=== PATIENT | female | born 1985 | race Caucasian/White ===

== ENCOUNTER 2018-05-08 19:50 | Emergency (ER) | payer OTHER, SELFPAY ==
[2018-05-08 21:07] LABS: Absolute Lymphocytes (CBC) 2.1 K/uL (0.7-4.9); Absolute Monocytes 0.5 K/uL (0.1-1.3); Absolute Neutrophil 4.3 K/uL (1.8-8.0); Basophils % 0.5 % (0-1.3); Eosinophils % 1.6 % (0-4.4); Hematocrit 41.8 % (36.0-45.0); Lymphocytes % 30.2 % (15.3-44.8); MCH 32.3 pg (27.0-35.0); MCV 93.2 fL (80-100); MPV 9.1 fL (7.6-11.3); Monocytes % 7.7 % (3.3-12.3); RBC Red Blood Cell Count 4.49 M/uL (3.86-4.86)
[2018-05-08 21:22] LABS: Urine Blood 2+ (NEG); Urine Glucose NEGATIVE (NEG); Urine Protein NEGATIVE (NEG); Urine Specific Gravity >1.030 (1.005-1.030)
[2018-05-08 21:24] LABS: BUN Blood Urea Nitrogen 17 mg/dL (7-18); Bicarbonate 25 mmol/L (21-32); Glucose Level 81 mg/dL (74-106); HCG, Quantitative 50 mIU/mL (1-3); Potassium 3.8 mmol/L (3.5-5.1); Sodium Level 141 mmol/L (136-145)
--- NOTE | 2018-05-08 23:03 | ER ---
Nurse's Notes [facility] Name: Debra Jade Age: 32 yrs Sex: Female : 1985 Arrival Date: 05/08/2018 Time: 19:55 Bed 24 Private MD: Alva Monaco Diagnosis: Threatened Presentation: 05/08 20:00 Presenting complaint: Patient states: vaginal bleeding, started yesterday- 5 weeks tl3 . Transition of care: patient was not received from another setting of care. Onset of symptoms was May 07, 2018. Risk Assessment: Do you want to hurt yourself or someone else? Patient reports no desire to harm self or others. Initial Sepsis Screen: Does the patient meet any 2 criteria? No. Patient's initial sepsis screen is negative. Does the patient have a suspected source of infection? No. Patient's initial sepsis screen is negative. Care prior to arrival: None. 20:00 Method Of Arrival: Ambulatory tl3 20:00 Acuity: EMILY 3 tl3 Triage Assessment: 20:17 General: Appears distressed, well groomed, well developed, well nourished, Behavior is tl3 calm, cooperative, appropriate for age, anxious. Pain: Denies pain. EENT: No signs and/or symptoms were reported regarding the EENT system. Neuro: Level of Consciousness is awake, alert, obeys commands, Oriented to person, place, time, situation, Appropriate for age. 20:20 Cardiovascular: Patient's skin is warm and dry. Respiratory: Airway is patent tl3 Respiratory effort is even, unlabored, Respiratory pattern is regular, symmetrical. GI: No signs and/or symptoms were reported involving the gastrointestinal system. : Reports vaginal bleeding that is bright red, since yesterday, has only used one pad each day, blood is mixed with mucus. Derm: No signs and/or symptoms reported regarding the dermatologic system. Musculoskeletal: No signs and/or symptoms reported regarding the musculoskeletal system. 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 - Social history:: Smoking status: unknown. - Ebola Screening: : No symptoms or risks identified at this time. Screenin:23 Abuse screen: Denies threats or abuse. Nutritional screening: No deficits noted. tl3 Tuberculosis screening: No symptoms or risk factors identified. Fall Risk None identified. Assessment: 20:23 Reassessment: No changes from previously documented assessment. tl3 20:47 Reassessment: Patient appears in no apparent distress at this time. No changes from tl3 previously documented assessment. Patient and/or family updated on plan of care and expected duration. Pain level reassessed. Patient is alert, oriented x 3, equal unlabored respirations, skin warm/dry/pink. pt being transported to US. 21:13 Reassessment: Patient appears in no apparent distress at this time. No changes from tl3 previously documented assessment. Patient and/or family updated on plan of care and expected duration. Pain level reassessed. Patient is alert, oriented x 3, equal unlabored respirations, skin warm/dry/pink. pt returned from US, no needs at this time. 22:49 Reassessment: Patient appears in no apparent distress at this time. No changes from tl3 previously documented assessment. Patient and/or family updated on plan of care and expected duration. Pain level reassessed. Patient is alert, oriented x 3, equal unlabored respirations, skin warm/dry/pink. awaiting Rhogam. 23:29 Reassessment: Patient appears in no apparent distress at this time. No changes from tl3 previously documented assessment. Patient and/or family updated on plan of care and expected duration. Pain level reassessed. Patient is alert, oriented x 3, equal unlabored respirations, skin warm/dry/pink. Vital Signs: 20:20 BP 145 / 89; Pulse 82; Resp 18; Temp 98.6(O); Pulse Ox 100% on R/A; tl3 21:13 BP 133 / 96; Pulse 52; Resp 18; Pulse Ox 100% on R/A; tl3 22:49 BP 122 / 83; Pulse 54; Resp 18; Pulse Ox 98% on R/A; tl3 23:29 BP 124 / 93; Pulse 56; Resp 16; Pulse Ox 99% on R/A; tl3 ED Course: 19:55 Patient arrived in ED. al2 19:55 Alva Monaco MD is Private Physician. al2 19:58 [facility] Gra[facility]. pm1 19:59 Tobias Bauer MD is Attending Physician. pm1 19:59 Bessie Dominguez, RN is Primary Nurse. tl3 20:14 Triage completed. tl3 20:15 Urine collected: clean catch specimen, clear, tam colored, Amount Voided: 60mL. jp3 20:20 Arm band placed on right wrist. tl3 20:23 Patient has correct armband on for positive identification. Placed in gown. Bed in low tl3 position. Call light in reach. Side rails up X 1. Pulse ox on. NIBP on. Warm blanket given. 20:23 No provider procedures requiring assistance completed. Inserted saline lock: 20 gauge tl3 in right antecubital area, using aseptic technique. 21:05 US Transvaginal Ob In Process Unspecified. EDMS 23:02 Alva Monaco MD is Referral Physician. pm1 23:29 IV discontinued, intact, bleeding controlled, No redness/swelling at site. Pressure tl3 dressing applied. Administered Medications: 23:30 Drug: RhoGAM (Human) 300 mcg Route: IM; Site: right gluteus; tl3 23:30 Follow up: Response: Medication administered at discharge. tl3 Outcome: 23:02 Discharge ordered by . pm1 23:29 Discharged to home ambulatory. tl3 23:29 Condition: good 23:29 Discharge instructions given to patient, Instructed on discharge instructions, follow up and referral plans. Demonstrated understanding of instructions, follow-up care. 23:31 Patient left the ED. tl3 Signatures: Dispatcher [employer] EDMS Kike Graff NP SHRUB GROWER pm1 Maria De Jesus Walker al2 Bessie Dominguez, RN RN tl3 Jabier Dover jp3
--- NOTE | 2018-05-08 23:03 | EDPHYS ---
Physician Documentation [facility] Name: Debra Jade Age: 32 yrs Sex: Female : 1985 Arrival Date: 05/08/2018 Time: 19:55 Bed 24 Private MD: Alva Monaco ED Physician Tobias Bauer HPI: 05/08 21:14 This 32 yrs old Female presents to ER via Ambulatory with complaints of pm1 Vaginal Bleeding, 5 WEEKS PREG. 21:14 The patient presents with vaginal bleeding that is light, with no clots, reports using pm1 1 pads or tampons per day. Onset: The symptoms/episode began/occurred yesterday. Modifying factors: The symptoms are alleviated by nothing, the symptoms are aggravated by nothing. Associated signs and symptoms: Pertinent negatives: cramping, dysuria, fever, nausea, vomiting. The patient is sexually active. The patient has not experienced similar symptoms in the past. The patient has been recently seen by a physician: Dr. Monaco. Patient reports bleeding similar in quantity to initial onset of menses. Patient denies any pain. 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 - Social history:: Smoking status: unknown. - Ebola Screening: : No symptoms or risks identified at this time. ROS: 21:14 Positive for vaginal bleeding, Negative for urinary symptoms. pm1 21:14 Constitutional: Negative for fever, chills, and weight loss, Eyes: Negative for injury, pain, redness, and discharge, ENT: Negative for injury, pain, and discharge, Neck: Negative for injury, pain, and swelling, Cardiovascular: Negative for chest pain, palpitations, and edema, Respiratory: Negative for shortness of breath, cough, wheezing, and pleuritic chest pain, Abdomen/GI: Negative for abdominal pain, nausea, vomiting, diarrhea, and constipation, Back: Negative for injury and pain, MS/Extremity: Negative for injury and deformity, Skin: Negative for injury, rash, and discoloration, Neuro: Negative for headache, weakness, numbness, tingling, and seizure. Exam: 21:14 Constitutional: This is a well developed, well nourished patient who is awake, alert, pm1 and in no acute distress. Head/Face: Normocephalic, atraumatic. Eyes: Pupils equal round and reactive to light, extra-ocular motions intact. Lids and lashes normal. Conjunctiva and sclera are non-icteric and not injected. Cornea within normal limits. Periorbital areas with no swelling, redness, or edema. ENT: Nares patent. No nasal discharge, no septal abnormalities noted. Tympanic membranes are normal and external auditory canals are clear. Oropharynx with no redness, swelling, or masses, exudates, or evidence of obstruction, uvula midline. Mucous membranes moist. Neck: Trachea midline, no thyromegaly or masses palpated, and no cervical lymphadenopathy. Supple, full range of motion without nuchal rigidity, or vertebral point tenderness. No Meningismus. Chest/axilla: Normal chest wall appearance and motion. Nontender with no deformity. No lesions are appreciated. Cardiovascular: Regular rate and rhythm with a normal S1 and S2. No gallops, murmurs, or rubs. Normal PMI, no JVD. No pulse deficits. Respiratory: Lungs have equal breath sounds bilaterally, clear to auscultation and percussion. No rales, rhonchi or wheezes noted. No increased work of breathing, no retractions or nasal flaring. Abdomen/GI: Soft, non-tender, with normal bowel sounds. No distension or tympany. No guarding or rebound. No evidence of tenderness throughout. Back: No spinal tenderness. No costovertebral tenderness. Full range of motion. 21:14 Skin: Warm, dry with normal turgor. Normal color with no rashes, no lesions, and no evidence of cellulitis. MS/ Extremity: Pulses equal, no cyanosis. Neurovascular intact. Full, normal range of motion. 21:14 Neuro: Orientation: is normal, Motor: is normal, moves all fours. Vital Signs: 20:20 BP 145 / 89; Pulse 82; Resp 18; Temp 98.6(O); Pulse Ox 100% on R/A; tl3 21:13 BP 133 / 96; Pulse 52; Resp 18; Pulse Ox 100% on R/A; tl3 22:49 BP 122 / 83; Pulse 54; Resp 18; Pulse Ox 98% on R/A; tl3 23:29 BP 124 / 93; Pulse 56; Resp 16; Pulse Ox 99% on R/A; tl3 MDM: 19:59 Patient medically screened. pm1 21:19 Data reviewed: vital signs. Data interpreted: Pulse oximetry: on room air is 100 %. pm1 Interpretation: normal. 23:02 Counseling: I had a detailed discussion with the patient and/or guardian regarding: the pm1 historical points, exam findings, and any diagnostic results supporting the discharge/admit diagnosis, lab results, radiology results, the need for outpatient follow up, to return to the emergency department if symptoms worsen or persist or if there are any questions or concerns that arise at home, Repeat beta HCG in 48 hours and ultrasound. 05/08 19:59 Order name: Quantitative Hcg; Complete Time: 21:41 pm1 05/08 19:59 Order name: Abo/rh Typing [facility] 05/08 19:59 Order name: Basic Metabolic Panel; Complete Time: 21:41 pm1 05/08 19:59 Order name: CBC with Diff; Complete Time: 21:14 pm05/08 20:27 Order name: Urine Dipstick--Ancillary (enter results); Complete Time: 21:41 mi 05/08 20:27 Order name: Urine --Ancillary (enter results); Complete Time: 21:41 mi 05/08 19:59 Order name: Urine Test (obtain specimen); Complete Time: 20:27 pm 05/08 20:07 Order name: US Transvaginal Ob [facility] 05/08 22:00 Order name: Rh Typing [facility] 05/08 22:00 Order name: Antibody Screen [facility] 05/08 22:00 Order name: Fetalscreen [facility] 05/08 22:00 Order name: Cord Rh type [facility] 05/08 22:00 Order name: Rhogam [facility] 05/08 19:59 Order name: IV Saline Lock; Complete Time: 20:28 pm05/08 19:59 Order name: Labs collected and sent; Complete Time: 20:28 pm1 05/08 19:59 Order name: NPO; Complete Time: 20:28 pm1 05/08 19:59 Order name: Urine Dipstick-Ancillary (obtain specimen); Complete Time: 20:28 pm1 Administered Medications: 23:30 Drug: RhoGAM (Human) 300 mcg Route: IM; Site: right gluteus; tl3 23:30 Follow up: Response: Medication administered at discharge. tl3 Disposition: 05/09 03:00 Co-signature as Attending Physician, Tobias Bauer MD I agree with the assessment and tw4 plan of care. Attestation: The patient's history, exam findings, diagnostics, and a summary of any interventions or procedures was reviewed in detail with Kike Graff NP. Disposition: 05/08/18 23:02 Discharged to Home. Impression: Threatened . - Condition is Stable. - Discharge Instructions: Threatened Miscarriage, Pelvic Rest. - Medication Reconciliation Form, Thank You Letter form. - Follow up: Alva Monaco MD; When: 2 - 3 days; Reason: Recheck today's complaints, Continuance of care, Repeat Beta-HCG (48 Hours), Re-evaluation by your physician. Follow up: Emergency Department; When: As needed; Reason: Worsening of condition, Repeat Beta-HCG (48 Hours). - Problem is new. - Symptoms have improved. Signatures: Dispatcher [employer] EDMS Kike Graff, REMOTE PILOT OPERATOR REMOTE PILOT OPERATOR pm1 Tobias Bauer MD MD tw4 Bessie Dominguez RN RN tl3 Corrections: (The following items were deleted from the chart) 05/08 23:03 23:02 05/08/2018 23:02 Discharged to Home. Impression: Threatened . Condition pm1 is Stable. Discharge Instructions: Threatened Miscarriage, Pelvic Rest. Forms are Medication Reconciliation Form, Thank You Letter, Antibiotic Education, Prescription Opioid Use. Follow up: Emergency Department; When: As needed; Reason: Worsening of condition. Follow up: Alva Monaco; When: 2 - 3 days; Reason: Recheck today's complaints, Continuance of care, Re-evaluation by your physician. Problem is new. Symptoms have improved. pm1 23:09 23:02 Counseling: I had a detailed discussion with the patient and/or guardian pm1 regarding: the historical points, exam findings, and any diagnostic results supporting the discharge/admit diagnosis, lab results, radiology results, the need for outpatient follow up, to return to the emergency department if symptoms worsen or persist or if there are any questions or concerns that arise at home, Repeat beta HCG in 48 hours, pm1 23:31 23:03 05/08/2018 23:02 Discharged to Home. Impression: Threatened . Condition tl3 is Stable. Discharge Instructions: Threatened Miscarriage, Pelvic Rest. Forms are Medication Reconciliation Form, Thank You Letter, Antibiotic Education, Prescription Opioid Use. Follow up: Alva Monaco; When: 2 - 3 days; Reason: Recheck today's complaints, Continuance of care, Repeat Beta-HCG (48 Hours), Re-evaluation by your physician. Follow up: Emergency Department; When: As needed; Reason: Worsening of condition, Repeat Beta-HCG (48 Hours). Problem is new. Symptoms have improved. pm1
--- NOTE | 2018-05-09 06:43 | RAD REPORT ---
EXAM DESCRIPTION: US - Transvaginal OB - 05/08/2018 9:05 pm CLINICAL HISTORY: VAGINAL BLEEDING<Reason For Exam>VAGINAL BLEEDING A preliminary report was provided at the time of the study and reviewed prior to final report. COMPARISON: No comparisons<Comparisons>No comparisons TECHNIQUE: Endovaginal sonography performed. FINDINGS: Uterus is 7.7 x 4.3 x 5.4 cm. No myometrial mass. A very small 3 x 2 mm oval fluid collect ion is present in the lower uterine segment junction with the cervical canal. This is too small to fu rther characterize. No IUP is confirmed. No hematoma or mass within the endometrial cavity. Both ovaries are identified. Normal blood flow pattern seen within the ovarian stroma. No dominant so lid or cystic ovarian or adnexal finding. No sonographic finding for ectopic . No blood or f luid in the cul-de-sac. IMPRESSION: No IUP confirmed. No abnormality to suspect ectopic . A very small 3 x 2 mm fluid collection low in the cervical canal is potentially a very early gestatio nal sac. This small cystic mass is too small to fully characterize. Followup sonography can be performed if serial HCG values indicate ongoing .
== END 2018-05-08 23:31 | disposition home or self-care (01) ==
LOC: ER 19:50
DX: O20.0 Threatened abortion (principal); Z3A.01 Less than 8 weeks gestation of pregnancy
CPT/HCPCS: 36415; 76817; 80048; 81003; 81025; 84702; 85025; 86850; 86900; 86901; 96372; 99284; J2790

== ENCOUNTER 2019-05-27 10:06 | Inpatient (IN) | payer BC ==
[2019-05-26 09:47] LABS: Urine Appearance CLEAR; Urine Bilirubin NEGATIVE (NEG); Urine Blood NEGATIVE (NEG); Urine Color YELLOW; Urine Glucose NEGATIVE (NEG); Urine Protein NEGATIVE (NEG); Urine Urobilinogen 0.2 mg/dL (0.2-1.0)
[2019-05-26 09:49] LABS: Urine Microscopic Reflex ORDER UMIC
[2019-05-26 09:50] LABS: Absolute Lymphocytes (CBC) 1.4 K/uL (0.7-4.9); Basophils % 0.2 % (0-1.3); Hematocrit 34.4 % (36.0-45.0); Lymphocytes % 18.5 % (15.3-44.8); MPV 8.5 fL (7.6-11.3); RBC Red Blood Cell Count 3.92 M/uL (3.86-4.86)
[2019-05-26 10:20] LABS: Urine Bacteria <20 /HPF (<20); Urine Culture Reflex Order REFLEXED; Urine RBC <5 /HPF (NONE SEEN)
[2019-05-26 20:54] LABS: RPR (Rapid Plasma Reagin) NON-REACT (NON-REACT)
[~2019-05-27 10:06] MED LIST: CEFAZOLIN/SWI 2gm 2 GM/20 ML SYR IV SCH; Ringers Lactate 1,000 ML IV PRN
--- OUTSIDE RECORDS SUMMARY | 2019-05-27 10:09 | XMS REPORT ---
:1985 Author Organization [employer] Care Team Providers Name Role Phone Francisco J Loyola Provider Role Unavailable Allergies, Adverse Reactions, Alerts Substance Reaction Event Type N.K.D.A. Info Not Available Non Drug Allergy Problems Problem Type Condition Code Onset Dates Condition Status Assessment Encounter for supervision of other Z34.83 Active normal in third trimester Problem Positive urine test Z32.01 Active Assessment Unspecified blood type, Rh negative Z67.91 Active Problem Encounter for supervision of other Z34.83 Active normal in third trimester Problem Unspecified blood type, Rh negative Z67.91 Active Problem Uterine size-date discrepancy in O26.843 Active third trimester Problem Parvovirus infection, unspecified B34.3 Active Problem Encounter for supervision of other Z34.82 Active normal in second trimester Problem Other specified related O26.899 Active conditions, unspecified trimester Problem Other viral diseases complicating O98.519 Active , unspecified trimester Medications Medication Code System Code Instructions Start Date End Date Status Dosage PNV NDC 0 Active not defined Results No Known Results Summary Purpose [employer] Submission
[2019-05-27 11:21] VITALS: BMI 26.4
[2019-05-27] MEDS ORDERED: NA CIT/CITRIC AC 30 ML ORAL UDC PO ONE (11:48)
[2019-05-27] MEDS ORDERED: FAMOTIDINE 20 MG/2 ML VIAL IV ONE (11:53)
[2019-05-27] MEDS ORDERED: Ringers Lactate 1,000 ML IV PRN (11:54)
[2019-05-27] MEDS ORDERED: CEFAZOLIN/NS 1gm 1 GM/50 ML BAG IVPB SCH (12:00)
[2019-05-27] MEDS ORDERED: OXYTOCIN/LR 20 UNIT/1,000 ML BAG IV SCH (12:00)
[2019-05-27] MEDS ORDERED: Ringers Lactate 1,000 ML IV SCH (12:00)
[2019-05-27] MEDS ORDERED: METOCLOPRAMIDE 10 MG/2mL INJ IV SCH (12:00)
[2019-05-27] MEDS ORDERED: EPHEDRINE SULF 50 MG/ML VIAL ONE (12:07)
[2019-05-27] MEDS ORDERED: FENTANYL CITR 250 MCG/5 ML ONE (12:07)
[2019-05-27] MEDS ORDERED: Phenylephrine HCl 10 MG/ML 1 ML VIAL ONE (12:07)
[2019-05-27] MEDS ORDERED: NS 0.9% VIAL 20 ML ONE (12:07)
[2019-05-27] MEDS ORDERED: OXYTOCIN 10 UNIT/ML ML IV ONE (12:07)
[2019-05-27] MEDS ORDERED: MORPHINE SULFATE/PF 1 MG/ML (10 ML AMP) ONE (12:07)
[2019-05-27] MEDS ORDERED: METHYLERGONOVINE 0.2MG/ML AMP IM ONE (12:58)
[2019-05-27] MEDS ORDERED: ONDANSETRON 4 MG (ODT) TAB PO PRN (13:46)
[2019-05-27] MEDS ORDERED: Oxycodone HCl/Acetaminophen 1 TAB TAB PO PRN (13:46)
[2019-05-27] MEDS ORDERED: METHYLERGONOVINE 0.2 MG TAB PO PRN (13:46)
[2019-05-27] MEDS ORDERED: ACETAMINOPHEN 500 MG TAB PO PRN (13:46)
[2019-05-27] MEDS ORDERED: BISACODYL 10 MG RECTAL SUPP RECT PRN (13:46)
[2019-05-27] MEDS ORDERED: KETOROLAC 30 MG/ML INJ IV PRN (13:48)
--- NOTE | 2019-05-27 13:50 | P.OP ---
Mortgage Processing Clerk: Umberto Holt Preoperative diagnosis: Prior section, declines Postoperative diagnosis: same Primary procedure: Repeat low transverse section Secondary procedure: none Anesthesia: spinal Estimated blood loss: 800cc Specimen: cord blood, placenta Findings: Female , APGARS 9/9, weight 7lb 13 oz Operative Technique: The patient was taken to the operating room where spinal anesthesia was administered without difficulty. The patient was prepped and draped in the usual sterile fashion in the dorsal supine position with a leftward tilt. A Pfannenstiel skin incision was made with the scalpel and carried through to the underlying layer of fascia using the scalpel. The fascia was incised in the midline and extended laterally using Raya scissors. Uzma clamps were used to elevate the superior aspect of the fascial incision, which was elevated, and the underlying rectus muscles were dissected off bluntly and using Raya scissors. Attention was then turned to the inferior aspect of the fascial incision, which in similar fashion was grasped with Uzma clamps, elevated, and the underlying rectus muscles were dissected off bluntly and using the Bovie. The rectus muscles were dissected in the midline. The peritoneum was identified and entered using Metzenbaum scissors; this incision was extended superiorly and inferiorly with good visualization of the bladder. The bladder blade was inserted. The vesicouterine peritoneum was identified and entered sharply using Metzenbaum scissors. This incision was extended laterally and the bladder flap was created digitally. The bladder blade was reinserted. The lower uterine segment was incised in a transverse fashion using the scalpel and extended using manual traction. Clear fluid was noted. The was subsequently delivered. Kiwi vacuum was used to help elevate the head to the incision. The nose and mouth were bulb suctioned. The cord was clamped and cut. The was subsequently handed to the awaiting nursery nurse. The placenta was delivered spontaneously intact with a three- vessel cord noted. The uterus was exteriorized and cleared of all clots and debris. The uterine incision was repaired in 2 layers using 0 vicryol sutures. Hemostasis was visualized. The vesical uterine peritoneum was reapproximated with 3 O Vicryl. The uterus was returned to the abdomen. The uterine incision was reexamined and it was noted to be hemostatic. The rectus muscles were reapproximated in the midline using 0 Vicryl. The fascia was closed with 1 Vicryl suture, the subcutaneous layer was closed with 2-0 plain gut, and the skin was closed with 3 O Vicryl on a Tanvir needle. Sponge, lap, and instrument counts were correct x2. The patient was stable at the completion of the procedure and was subsequently transferred to the recovery room in stable condition. Complications: None Drain(s): Urinary catheter Transferred to: Recovery Room Condition: Good
[2019-05-27] MEDS ORDERED: ONDANSETRON 4 MG/2 ML VIAL ONE (16:31)
[2019-05-27] MEDS ORDERED: ONDANSETRON 4 MG/2 ML VIAL IV ONE (16:45)
[2019-05-27] MEDS ORDERED: PROMETHAZINE 25 MG/ML VIAL IV ONE (16:48)
[2019-05-27] MEDS: Oxycodone HCl/Acetaminophen 1 TAB TAB PO PRN (21:38)
[2019-05-28] MEDS: IBUPROFEN 400 MG TAB PO PRN ×3 (04:05→15:28)
[2019-05-28 04:45] LABS: Absolute Lymphocytes (CBC) 1.9 K/uL (0.7-4.9); Basophils % 0.2 % (0-1.3); Hematocrit 33.4 % (36.0-45.0); Lymphocytes % 14.5 % (15.3-44.8); MPV 8.5 fL (7.6-11.3); RBC Red Blood Cell Count 3.79 M/uL (3.86-4.86)
[2019-05-28] MEDS ORDERED: Ringers Lactate 1,000 ML IV ONE (09:34)
[2019-05-28] MEDS ORDERED: IBUPROFEN 200 MG TAB PO ONE (15:32)
[2019-05-28] MEDS: Oxycodone HCl/Acetaminophen 1 TAB TAB PO PRN (20:35)
[2019-05-29 03:22] LABS: HBsAG Nonreactive (Nonreactive)
[2019-05-29] MEDS: IBUPROFEN 400 MG TAB PO PRN (04:05)
[2019-05-29 08:51] VITALS: BP 129/90; TEMP 97.9
--- NOTE | 2019-05-29 09:49 | P.PN ---
Date of Service: 05/28/19 The patient is postop day 1 from a repeat section. She is doing well. She is tolerating diet. Her pain is well controlled. She is afebrile. She has no complaints today she is bonding well with the baby and is breast-feeding. Selected Entries 05/28/19 05/28/19 05/28/19 06:00 07:59 09:30 Temperature 98.4 F 98.6 F Pulse Rate 64 67 Respiratory 18 Rate Blood Pressure 108/70 Pain Level 4 O2 Sat by Pulse 98 98 Oximetry Laboratory Tests 05/26/19 05/27/19 05/28/19 09:29 17:00 04:21 WBC 7.6 12.9 H D Hgb 11.6 L 11.2 L Hct 34.4 L 32.8 L 33.4 L Plt Count 255 213 Vital sign stable General: Resting in bed no distress Head and neck: Normocephalic atraumatic, supple Respiratory: Symmetric nonlabored breathing Abdomen: Soft, mildly distended, mildly tender. Incision clean dry and intact Bilateral lower extremities: No clubbing cyanosis or edema. Assessment and plan patient is postop day 1 after repeat section she is doing well. Pain is well controlled. Discontinue IV discontinue Bowens catheter. Encourage patient to ambulate. Possible discharge home tomorrow.
== END 2019-05-29 11:00 | disposition home or self-care (01) | DRG 788 ==
LOC: 2ND-WC 10:06
PROVIDERS: ADMIT Student in an Organized Health Care Education/Training Program; ATTEND Student in an Organized Health Care Education/Training Program
PROC: 10D00Z1 Extraction of Products of Conception, Low, Open Approach (ICD-10-PCS; principal; 2019-05-27 12:30)
DX: O34.211 Maternal care for low transverse scar from previous cesarean delivery (principal); Z3A.39 39 weeks gestation of pregnancy; Z37.0 Single live birth
CPT/HCPCS: 36415; 81003; 81015; 85014; 85025; 86592; 86850; 86870; 86900; 86901; 87086; 87088; 87340; 88307; J0690; J2210; J2370; J2405; J2590; J2765; J3010